=== PATIENT | female | born 2000 | race Caucasian/White ===

== ENCOUNTER 2020-02-26 02:27 | Emergency (ER) | payer BC ==
[~2020-02-26] VITALS: Ht 160 cm; Wt 62.7 kg
[2020-02-26 02:31] VITALS: TEMP 99.5
[2020-02-26 04:38] VITALS: BP 130/78; PULSE 130
== END 2020-02-26 06:05 | disposition short-term general hospital (02) ==
LOC: COL.ER 02:27
DX: T76.21XA Adult sexual abuse, suspected, initial encounter (principal)

== ENCOUNTER → 2020-02-26 | Outpatient (CLI) | payer BC | LOC: LDRO 03:14 → COL.ER 03:14 | DX: Z04.41 Encounter for examination and observation following alleged adult rape (principal) ==

== ENCOUNTER → 2020-02-26 | Outpatient (REF) | LOC: COL.ER 03:16 | DX: Z00.00 Encounter for general adult medical examination without abnormal findings (principal) ==

== ENCOUNTER 2022-06-01 02:48 | Emergency (ER) | payer BC ==
[~2022-06-01] VITALS: Ht 162.6 cm; Wt 61.8 kg
[2022-06-01 02:54] VITALS: TEMP 99.5
[2022-06-01 03:32] LABS: COLLECTION METHOD CLEAN CATCH
[2022-06-01 03:39] LABS: BASO % 0.4 % (0.0-2.0); EOS % 0.4 % (0.0-4.0); GRAN # 2.9 K/mm3 (1.4-6.5); HEMOGLOBIN 11.5 g/dl (12.5-16.0); LYMPH # 1.6 K/mm3 (1.2-3.4); LYMPH % 27.8 % (20.0-51.0); MEAN CELL VOLUME 87 fl (80.0-100.0); MEAN CORPUSCULAR HEMOGLOBIN 29 pg (27-31); MEAN CORPUSCULAR HGB CONC 34 g/dl (33.0-37.0); MEAN PLATELET VOLUME 9.8 fl (7.4-10.4); MONO # 1.1 K/mm3 (0.1-0.6); PLATELET COUNT 259 K/mm3 (130-400); RED BLOOD COUNT 3.92 M/mm3 (4.10-5.30); REDCELL DISTRIBUTION WIDTH-CV 13.8 % (11.5-14.5)
[2022-06-01 03:41] LABS: HEMATOCRIT 34.2 % (37.0-47.0)
[2022-06-01 04:03] LABS: ALBUMIN 3.5 gm/dL (3.5-5.0); BILIRUBIN,TOTAL 0.2 mg/dL (0.2-1.2); MUCOUS Present (NOT PRESENT); PH 6.5 (5.0-8.5); POTASSIUM 3.9 mmol/L (3.5-4.5); SQUAMOUS EPITHELIAL 0-2 /hpf (0-10); URINE APPEARANCE Clear (CLEAR/HAZY); URINE BACTERIA None Seen /hpf (NONE SEEN); URINE BLOOD TRACE-INTACT (NEGATIVE); URINE COLOR Yellow (YELLOW); URINE GLUCOSE Negative (NEGATIVE); URINE KETONE Negative (NEGATIVE); URINE NITRATE Negative (NEGATIVE); URINE PROTEIN(semi-quant) Negative (NEGATIVE); URINE RBC 0-2 /hpf (0-2); URINE UROBILINOGEN 0.2 E.U/dL (0.2-1.0)
[2022-06-01 04:22] LABS: CREATININE, serum 0.9 mg/dL (0.57-1.11)
[2022-06-01] MEDS ORDERED: CIPRO 500MG TA500 MG PO (04:30)
[2022-06-01] MEDS ORDERED: ZOFRAN ODT4 MG PO (04:30)
[2022-06-01 04:52] VITALS: BP 102/60; PULSE 76
== END 2022-06-01 04:48 | disposition home or self-care (01) ==
LOC: COL.ER 02:48
PROVIDERS: Personal Emergency Response Attendant
DX: N12 Tubulo-interstitial nephritis, not specified as acute or chronic (principal); N39.0 Urinary tract infection, site not specified; Z32.02 Encounter for pregnancy test, result negative; Z79.2 Long term (current) use of antibiotics
CPT/HCPCS: J1956; J2270; J2405; J7030